=== PATIENT | male | born 1985 | race Caucasian/White ===

== ENCOUNTER 2017-06-29 01:46 | Emergency (ER) | payer MEDICAID, SELFPAY ==
[2017-06-29 01:48] VITALS: BP 144/72; PULSE 92; RESP 24; TEMP 36.7; O2SAT 97; BMI 42.8
--- NOTE | 2017-06-29 01:55 | EKG12_ITS ---
Test Reason : CP Blood Pressure : / mmHG Vent. Rate : 081 BPM Atrial Rate : 081 BPM P-R Int : 134 ms QRS Dur : 104 ms QT Int : 378 ms P-R-T Axes : 022 055 057 degrees QTc Int : 439 ms Normal sinus rhythm Normal ECG Confirmed by RAMON AVERY, ARTHUR ([id number]), staff editor CECIL VILA ([id number] on 07/02/2017 2:31:08 PM Referred By: JULIET Confirmed By:ARTHUR NAVARRO MD
--- NOTE | 2017-06-29 01:57 | ED.DCSUM_ITS ---
- ER Visit Summary Date of Service: 06/29/17 Chief Complaint: [] Cough with chest soreness History of Present Illness: The patient is a 32 M with a history of asthma has been coughing for last 3 days. He has had some mucus brought up. Current severity is mild. He is using his inhaler. He has been wheezing. Comes in for further evaluation. Physical Examination: Vital signs reviewed General: Well-nourished well-developed Head: Normocephalic atraumatic Eyes: Pupils equal round and reactive to light extraocular movements intact ENT: TMs clear no hemotympanum no trauma Neck: Nontender full range of motion Cardiovascular: Regular rate rhythm no murmurs normal S1-S2 Respiratory: Diffuse wheezes throughout all lung rivera expiratory. Chest nontender Abdomen: Soft nontender nondistended normal bowel sounds no masses Back: Nontender no CVA tenderness Extremities: Nontender active range of motion ?4 extremities no trauma Skin: Normal color no trauma Neuro alert oriented cranial nerves II through XII intact normal strength sensation reflexes Test Results: [] Emergency Department Course and Treatment: [] EKG obtained by staff shows normal sinus rhythm at 81. Patient given DuoNeb breathing treatment and albuterol breathing treatments with good resolution of wheezing. The patient has an asthmatic bronchitis versus asthma exacerbation. He will be treated with prednisone. He is a smoker and I will write him for a short course of Z- Domingo. Treatment Plan: [] Disposition: [] Impression: [] Acute asthma exacerbation versus asthmatic bronchitis This note was generated with [employer] dictation software. It may contain incorrect words, spelling, and punctuation that were not noted in review of the chart prior to signing ED Disposition - Plan for ED Patient: Chief Complaint: Chest Pain Referrals: Care Physician,No Primary [Primary Care Provider] -
[2017-06-29 02:03] VITALS: O2SAT 94
[2017-06-29] MEDS: Ipratropium/Albuterol Sulfate 3 ML AMPUL.NEB INHALATION (02:08)
[2017-06-29 02:09] VITALS: PULSE 73; RESP 23
[2017-06-29] MEDS: Albuterol 2.5 MG/3 ML VIAL.NEB. INHALATION ×2 (02:12→02:17)
[2017-06-29 02:35] VITALS: BP 126/63; PULSE 84; RESP 21; O2SAT 95
== END 2017-06-29 02:36 | disposition home or self-care (01) ==
LOC: ED 02:32
PROVIDERS: Emergency Provider Emergency Medicine
DX: J45.909 Unspecified asthma, uncomplicated (principal); F17.200 Nicotine dependence, unspecified, uncomplicated
CPT/HCPCS: 93005; 94640; 99284

== ENCOUNTER 2019-02-22 10:41 | Emergency (ER) | payer MEDICAID, SELFPAY ==
[2019-02-22 10:42] VITALS: BP 123/75; PULSE 78; RESP 18; TEMP 36.6; O2SAT 98; BMI 35.9
--- NOTE | 2019-02-22 11:02 | ED.VIS.GEN ---
History of Present Illness Chief Complaint: Lower Extremity Injury Informant: Patient Onset: Days Timing: Continuous Quality: Cracked skin and pain Location: Plantar surface of feet Current Severity: Moderate Maximum Severity: Moderate Worsened by: Perspiration Relieved by: Nothing Associated Symptoms: No symptoms of hyperglycemia Narrative: Patient is a 33-year-old male presents with painful cracks in his skin and rash between the right fourth and fifth toe. There is family history of diabetes. He denies polyuria, polydipsia or polyphagia. He denies nocturia. He denies blurred vision or any change in his vision. He states he put subsiding. He reports sweating a lot. Prior similar symptoms: No Recent Illness/Hospitalization: No - Past Medical History (1) Lower GI bleeding Status: Acute (2) Overdose by amphetamine Status: Acute (3) Cannabis abuse Status: Chronic (4) Nicotine dependence Status: Chronic Past Medical History - Allergies and Home Meds Allergies/Adverse Reactions: Allergies Penicillins Allergy (Verified 02/22/19 10:44) Unknown venom-honey bee [bee venom (honey bee)] Allergy (Verified 02/22/19 10:44) Swelling Primary Care Physician: Js Roblero Chi, MD [COURTESY STAFF PHYSICIAN] - Care Physician,No Primary [Primary Care Provider] - Prior records reviewed: Yes Surgical History: - - unknown....pt not answerin any questions and is somnulent Lives: Alone Smoking Status: Current every day smoker Alcohol: Rare Drugs: Marijuana - Family History Maternal Family History: Reports: - - can not obtain....pt is not talking or answering questions Review of Systems General: Denies: Chills, Fever, Malaise, Sweats Eyes: Denies: Visual changes - bilaterally, Blurred Vision - bilaterally, Diplopia ENT: Denies: Bilateral ear pain, Rhinorrhea, Sore throat Cardiovascular: Denies: Chest pain, Palpitations Respiratory: Denies: Dyspnea, Cough, Dyspnea on exertion Musculoskeletal: Reports: Extremity Pain. Denies: Myalgias, Arthralgias, Neck pain, Back pain, Swelling Skin: Reports: Rash, Wounds. Denies: Abscess, Abrasions Allergy: Denies: Uticaria, Swelling of the mouth Physical Exam Vital Signs/Narrative: Vital Signs Temp Pulse Resp BP Pulse Ox 02/22/19 10:42 97.9 F 78 18 123/75 H 98 Inital Vital Signs reviewed: Yes General: Well nourished, Well developed, Obese, Unkempt, No Acute Distress Head: Normocephalic, Atraumatic Eyes: Perrl, EOMI. Negative for: Pale conjunctiva, Scleral icterus, - Cardiovascular: Regular rate, Regular rhythm Respiratory: No distress Extremities: No edema. Negative for: Nontender Skin: Normal color, Rash - She has evidence of dyshidrotic eczema of his feet as well as tinea pedis.. Negative for: No rash Neurological: Alert, Oriented x3, Cranial nerves II-XII grossly intact, Normal Strength, Normal Sensation, Normal DTR Psychological: Normal affect Diagnostic/Tx/Re-eval Sugar is elevated 152. This is abnormal. He was to follow-up with his primary care physician for formal testing. - Medical Decision Making There is a family history of diabetes a BTT was obtained. If PTT is normal will discharge with home-going instructions for dyshidrotic eczema and tinea pedis. ED Disposition - Plan for ED Patient: Diagnosis: Tinea pedis of right foot, Dyshidrotic eczema, Hyperglycemia, unspecified Instructions: Atopic Dermatitis (Eczema), CLOTRIMAZOLE, Topical, Athlete'S Foot, HYPERGLYCEMIA, NEW ONSET (Diabetes Suspected) Prescriptions: Clotrimazole [Clotrimazole AF] 30 gm TP TID #1 cream..g. Prescription Printed Referrals: Care Physician,No Primary [Primary Care Provider] - Js Roblero Chi, MD [COURTESY STAFF PHYSICIAN] - 5-7 Days Additional Instructions: Apply Eucerin cream 3 times a day. Recommend application prior to going to bed as well.
[2019-02-22 11:50] LABS: Bedside Glucose 152 mg/dL (70-110)
== END 2019-02-22 12:35 | disposition home or self-care (01) ==
LOC: ED 11:14
PROVIDERS: Emergency Provider Emergency Medicine
DX: L30.1 Dyshidrosis [pompholyx] (principal); B35.3 Tinea pedis; R73.9 Hyperglycemia, unspecified; F17.200 Nicotine dependence, unspecified, uncomplicated; Z88.0 Allergy status to penicillin; Z83.3 Family history of diabetes mellitus
CPT/HCPCS: 82962; 99282

== ENCOUNTER 2019-08-16 13:28 | Emergency (ER) | payer MEDICAID, SELFPAY ==
[2019-08-16 13:29] VITALS: BP 134/85; PULSE 88; RESP 16; TEMP 36.7; O2SAT 98; BMI 35.9
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
[2019-08-16 15:11] VITALS: RESP 18
[2019-08-16 15:29] VITALS: BP 133/77; PULSE 104; RESP 16; O2SAT 97
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
--- NOTE | 2019-08-16 15:32 | ED.DEP ---
ED Disposition - Plan for ED Patient: Instructions: ED Concussion
[2019-08-16] MEDS: Acetaminophen 500 MG Tablet 1000 MG PO (15:49)
--- NOTE | 2019-08-16 17:14 | ED.RN ---
pt returned shortly after dc. nurse at long term concerned fro concussion,
--- NOTE | 2019-08-16 17:30 | ED.RN ---
patient refusing to have labs drawn or give urine sample. made aware
--- NOTE | 2019-08-16 18:00 | NURSING ---
patient refusing to sign AMA papersrayna on phone with their motion picture equipment supervisor, and instructed to have labs and urine drawn if he refuses to sign AMA papers
--- NOTE | 2019-08-16 18:10 | NURSING ---
Per Keren ARAYA nursing flame cutting supervisor, we need a warrant to draw blood and get urine if patient is refusing, winter soria made aware
--- NOTE | 2019-08-16 18:15 | NURSING ---
Patient agreeable to sign AMA papers, still refusing labs to be drawn or give urine sample. Patient has been educated by this RN, Anand Hameed RN and Dr. Bishop on need to further evaluate him by utiliing lab work. Patient given AMA paper, states he is able to read and understand it. This RN read part of paper to timjose angel at his request. Told he can return at any time for care, concussion education reprintedand AMA paper signed. Patient discharged in [facility] Deputies' custody
== END 2019-08-16 18:31 | disposition home or self-care (01) ==
LOC: ED 15:42
PROVIDERS: Emergency Provider Emergency Medicine
DX: S06.0X1A Concussion with loss of consciousness of 30 minutes or less, initial encounter (principal); V89.2XXA Person injured in unspecified motor-vehicle accident, traffic, initial encounter; Y93.89 Activity, other specified; Y92.9 Unspecified place or not applicable; R07.89 Other chest pain; R40.0 Somnolence; Z72.0 Tobacco use; Z53.29 Procedure and treatment not carried out because of patient's decision for other reasons
CPT/HCPCS: 70450; 71101; 99283

== ENCOUNTER 2021-03-02 17:20 | Emergency (ER) | payer MEDICAID, SELFPAY ==
[2021-03-02 17:20] VITALS: BP 124/112; PULSE 132; RESP 18; TEMP 36.1; O2SAT 95; BMI 45.3
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
[2021-03-02] MEDS: Morphine 4 MG/ML Syringe IV (17:57)
[2021-03-02] MEDS: Ketorolac 60 MG/2 ML Vial IM (17:57)
[2021-03-02] MEDS: Orphenadrine 60 MG/2 ML Ampul IM (17:58)
[2021-03-02 18:50] VITALS: BP 142/87; PULSE 87; RESP 16; O2SAT 99
== END 2021-03-02 19:16 | disposition home or self-care (01) ==
PROVIDERS: Emergency Provider Emergency Medicine
DX: M54.50 Low back pain, unspecified (principal); E66.9 Obesity, unspecified; Z68.42 Body mass index [BMI] 45.0-49.9, adult; Z79.899 Other long term (current) drug therapy; Z87.891 Personal history of nicotine dependence
CPT/HCPCS: 96372; 96374; 99282

== ENCOUNTER 2021-06-22 10:40 | Emergency (ER) | payer MEDICAID, SELFPAY ==
[2021-06-22 10:41] VITALS: BP 135/101; PULSE 56; RESP 17; TEMP 35.7; O2SAT 96; BMI 46.2
[2021-06-22 11:17] VITALS: BP 145/78; PULSE 72; RESP 16; O2SAT 98
[2021-06-22] MEDS: Ketorolac 15 MG/ML Vial IM (11:20)
[2021-06-22] MEDS: Morphine 4 MG/ML Syringe IM (11:21)
[2021-06-22] MEDS: Orphenadrine 60 MG/2 ML Ampul IM (11:21)
--- NOTE | 2021-06-22 11:54 | CT_ITS ---
STUDY: CT ABDOMEN AND PELVIS WITHOUT CONTRAST REASON FOR EXAM: Male, 36 years old. 2 day history of flank pain. RADIATION DOSAGE (If Supplied By Facility): CTDIvol = ( 33.36 ) mGy, DLP = ( 1966.88 ) mGycm TECHNIQUE: Transaxial images were obtained from the dome of the diaphragm to the symphysis pubis without oral contrast, and without intravenous contrast. Sagittal and coronal images were reconstructed. Individualized dose optimization techniques were used for this CT. COMPARISON: Comparison is made with prior study 09/26/2019. FINDINGS: The visualized lung bases are unremarkable. The visualized portions of the heart are within normal limits. Normal liver. Normal gallbladder and extrahepatic biliary system. Normal spleen. Normal pancreas. Normal bilateral adrenal glands. Punctate calculus is seen in the lower pole calyx of the right kidney. Normal left kidney. Incidental note is made of a left retroaortic renal vein. Normal visualized stomach. Normal small intestine. There are scattered colonic diverticula consistent with diverticulosis. The appendix is visualized and appears normal. Normal abdominal aorta. Normal inferior vena cava. Normal retroperitoneum. Normal urinary bladder. There is a small umbilical hernia containing fat. There are mild degenerative changes of the visualized lumbar spine. CT/Abdomen/Pelvis without Cont IMPRESSION: Punctate calculus in the lower pole calyx of the right kidney. No obstructive uropathy is seen. Electronically Signed: Yony Lawrence MD at 12:49 EST ,
--- NOTE | 2021-06-22 11:54 | ED.VIS.BACK ---
HPI History of Present Illness Chief Complaint: Back Narrative Narrative: 36-year-old male presenting with left lumbar paraspinal muscular pain. He states that this is been present for 3 days. He states he shoveled snow prior to the pain starting on the first day it hurt but it was manageable. Yesterday he reports improvement of his pain. Today when he woke up he was feeling as if he had a muscle spasm in the left lower back. He states this radiates into the left gluteal region and left posterior thigh. Patient denies any direct trauma. He denies loss of bladder or bowel control. No saddle paresthesia. Patient does report a history of kidney stone in the past. He denies dysuria hematuria. He denies constipation or diarrhea. He denies fever or chills. [facility] Medical History Bipolar 1 disorder History of drug overdose History of suicidal ideation PTSD (post-traumatic stress disorder) Home Medications aripiprazole 15 mg PO DAILY 09/26/19 [History Last Taken Unknown] divalproex 250 mg PO BIDCM 09/26/19 [History Last Taken Unknown] ibuprofen 800 mg PO TID PRN PRN #20 tab 09/26/19 [Rx Last Taken Unknown] sertraline 25 mg PO DAILY 09/26/19 [History Last Taken Unknown] tamsulosin 0.4 mg PO DAILY #7 cap 09/26/19 [Rx Last Taken Unknown] cyclobenzaprine 10 mg PO BID PRN #10 tab 03/02/21 [Rx Last Taken Unknown] oxycodone-acetaminophen [Percocet] 1 tab PO Q6H PRN 3 Days #10 tab 03/02/21 [Rx Last Taken Unknown] prednisone 60 mg PO DAILY #15 tab 03/02/21 [Rx Last Taken Unknown] prednisone 50 mg PO DAILY #4 tab 06/22/21 [Rx Last Taken Unknown] tizanidine [Zanaflex] 4 mg PO Q8H PRN #20 cap 06/22/21 [Rx Last Taken Unknown] Allergy/AdvReac Type Severity Reaction Status Date / Time Penicillins Allergy Unknown Verified 06/22/21 10:41 venom-honey bee Allergy Swelling Verified 06/22/21 10:41 [bee venom (honey bee)] Social History Smoking Status: Former smoker ROS ROS ED Constitutional Constitutional ED: Denies chills or fever(s) Eyes Eyes: Denies blurry vision or diplopia ENT ENT ED: Denies rhinorrhea or sore throat Cardiovascular Cardiovascular: Denies chest pain or palpitations Respiratory/Chest Respiratory/Chest: Denies dyspnea or sputum Gastrointestinal Gastrointestinal: Denies abdominal pain or nausea Genitourinary Genitourinary ED: Denies dysuria or hematuria Musculoskeletal Musculoskeletal: Reports back pain Integumentary Denies Abrasions or rash Psychiatric Psychiatric: Denies anxiety or depression EXAM Physical Exam Const Vital Signs: 06/22/21 10:41 06/22/21 11:17 06/22/21 13:16 Temperature 96.2 F L Temperature Source Temporal Pulse Rate 56 L 72 88 Respiratory Rate 17 16 18 Blood Pressure 135/101 H 145/78 H 134/82 H Blood Pressure Mean 112 100 99 Pulse Ox 96 98 97 Oxygen Delivery Method Room Air Room Air Room Air Positive well nourished and obese Constitutional Narrative: Appears to be in pain laying on his abdomen Nutritional Appearance: obese HEENT Negative for trauma Eyes Negative for PERRL or EOMs intact bilaterally Neck No no lymphadenopathy and No supple Resp No normal respiratory effort and No clear to auscultation bilaterally Cardio Negative for regular rate or regular rhythm GI normal to inspection, nondistended, normoactive bowel sounds Back/Spine Back/Spine Narrative: Tenderness to palpation left lumbar paraspinal musculature extending into the left gluteal region. No midline spinal deformity or step-off of the lumbar spine. No CVA tenderness. Extremity normal to inspection Extremity Narrative: Tenderness palpation of the left gluteal region and left posterior thigh. No rash, ecchymosis, cellulitic change Neuro oriented x3 Sensorium / Orientation: alert Psych mental status grossly normal Skin no rashes or lesions noted MDM MDM MDM Narrative Medical decision making narrative: 36-year-old male presenting with left lower back pain. He is initially given Norflex, Toradol, and and morphine IM. He still complained of pain and he was given a Lidoderm patch and an IV was established he was given IV Dilaudid. This did help his pain considerably. Since he has history of kidney stone as well I did obtain blood work and his CBC and BMP are unremarkable. Urinalysis is negative for infection and blood. CT of the abdomen pelvis without contrast obtained and there is no obstructing calculi. There is a punctate calculus in the lower pole of the right kidney which is not where his pain is. Patient counseled on all findings. I feel he likely has a lumbar strain with radiculopathy. Patient started on prednisone which had worked for him in the past and he is given a prescription for muscle relaxers. He is given return precautions. Impression: 1. Lumbar strain 2. Lumbar radiculopathy Lab Data Attestation: I reviewed the patient's lab results. Labs: Laboratory Results - last 24 hr 06/22/21 06/22/21 06/22/21 12:00 12:00 12:00 WBC 10.4 RBC 5.07 Hgb 15.3 Hct 45.0 MCV 88.8 MCH 30.2 MCHC 34.0 RDW Std Deviation 44.1 H RDW Coeff of Radha 13.6 Plt Count 259 MPV 11.2 Immature Gran % (Auto) 0.300 Neut % (Auto) 67.6 Lymph % (Auto) 22.0 [place] % (Auto) 8.3 Eos % (Auto) 1.5 Baso % (Auto) 0.3 Absolute Neuts (auto) 7.0 Absolute Lymphs (auto) 2.29 Nucleated RBC % 0 Sodium 138 Potassium 4.5 Chloride 109 H Carbon Dioxide 26.0 Anion Gap 3 L BUN 16 Creatinine 0.92 Estim Creat Clear Calc 113.51 Est GFR (MDRD) Af Amer 119 Est GFR (MDRD) Non-Af 99 BUN/Creatinine Ratio 17.4 Glucose 100 Calcium 8.6 Urine Color Urine Clarity Urine pH Ur Specific [place] Urine Protein Urine Glucose (UA) Urine Ketones Urine Occult Blood Urine Nitrite Urine Bilirubin Urine Urobilinogen Ur Leukocyte Esterase Urine RBC Urine WBC Ur Squamous Epith Cells Urine Bacteria Urine Mucus Valproic Acid < 3 L 06/22/21 12:02 WBC RBC Hgb Hct MCV MCH MCHC RDW Std Deviation RDW Coeff of Radha Plt Count MPV Immature Gran % (Auto) Neut % (Auto) Lymph % (Auto) [place] % (Auto) Eos % (Auto) Baso % (Auto) Absolute Neuts (auto) Absolute Lymphs (auto) Nucleated RBC % Sodium Potassium Chloride Carbon Dioxide Anion Gap BUN Creatinine Estim Creat Clear Calc Est GFR (MDRD) Af Amer Est GFR (MDRD) Non-Af BUN/Creatinine Ratio Glucose Calcium Urine Color Yellow Urine Clarity Clear Urine pH 6.5 Ur Specific [place] 1.020 Urine Protein Negative Urine Glucose (UA) Normal Urine Ketones Negative Urine Occult Blood Negative Urine Nitrite Negative Urine Bilirubin Negative Urine Urobilinogen Normal Ur Leukocyte Esterase Negative Urine RBC 0 SEEN Urine WBC 0 SEEN Ur Squamous Epith Cells 0 SEEN Urine Bacteria 0 SEEN Urine Mucus 0 SEEN Valproic Acid Radiography Diagnostic Testing: Clinical Impression(s) from Imaging Studies Abdomen/Pelvis CT 06/22/21 11:54 IMPRESSION: Punctate calculus in the lower pole calyx of the right kidney. No obstructive uropathy is seen. Electronically Signed: Yony Lawrence MD at 12:49 EST , Discharge Plan Triage Chief Complaint: Back ED Provider: Pk Orozco Dx/Rx/DC Orders Instructions: ED Back Spasm, No Trauma Prescriptions: New prednisone 50 mg tablet 50 mg PO DAILY Qty: 4 RF: 0 tizanidine [Zanaflex] 4 mg capsule 4 mg PO Q8H PRN (Reason: muscle spasticity) Qty: 20 RF: 0 No Action divalproex 250 MG tablet 250 mg PO BIDCM RF: 0 sertraline 25 MG tablet 25 mg PO DAILY RF: 0 aripiprazole 15 MG tablet 15 mg PO DAILY RF: 0 ibuprofen 800 MG tablet 800 mg PO TID PRN PRN (Reason: Pain Score 1-10/10) Qty: 20 RF: 0 tamsulosin 0.4 MG capsule 0.4 mg PO DAILY Qty: 7 RF: 0 cyclobenzaprine 10 mg tablet 10 mg PO BID PRN (Reason: muscle spasm) Qty: 10 RF: 0 prednisone 20 MG tablet 60 mg PO DAILY Qty: 15 RF: 0 oxycodone-acetaminophen [Percocet] 5-325 mg tablet 1 tab PO Q6H PRN (Reason: pain) 3 Days Qty: 10 RF: 0 Primary Care Provider: Care Physician,No Primary Referrals: Harvinder Elizabeth MD [STAFF PHYSICIAN] - As soon as possible Care Physician,No Primary [Primary Care Provider] - Disposition Disposition: Home, Self Care Discharge Date/Time: 06/22/21 14:24
[2021-06-22] MEDS: Lidocaine 5% Patch 1 PATCH TOPICAL (12:15)
[2021-06-22] MEDS: HYDROmorphone 0.5 MG/0.5 ML SYRINGE IV (12:15)
[2021-06-22] MEDS: predniSONE 20 MG Tablet 60 MG PO (12:15)
[2021-06-22 12:18] LABS: Bacteria 0 SEEN /hpf (None Seen); Mucous, Urine 0 SEEN /hpf (<or=2+); Red Blood Cells-Urine 0 SEEN /hpf (0-5); Squamous Epithelial Cells - UA 0 SEEN /hpf (0-5); White Blood Cells 0 SEEN /hpf (0-5)
[2021-06-22 12:19] LABS: Absolute Lymphocyte Count 2.29 X10^3/uL (0.83-4.51); Basophil# 0.03 X10^3/uL; Basophil% 0.3 % (0-1); Eosinophil# 0.16 X10^3/uL; Eosinophils% 1.5 % (0-5); Hemoglobin 15.3 g/dL (13.0-16.5); Lymphocyte # 2.29 X10^3/ul (0.83-4.51); Mean Corpuscular Hgb 30.2 pg (27.0-32.0); Mean Corpuscular Volume 88.8 fL (80-94); Mean Platelet Vol. 11.2 fl (6.2-12.0); Monocyte# 0.86 X10^3/uL; Monocyte% 8.3 % (0-10); NRBC Flagged by Analyzer 0 % (0-5); Neutrophil # 7.03 X10^3/uL (2.7-7.7); Neutrophil % 67.6 % (47-70); Platelet Count 259 K/mm3 (150-450); RBC Distribution Width CV 13.6 % (11.6-14.6); RBC Distribution Width SD 44.1 fl (35.1-43.9); Red Blood Count 5.07 M/mm3 (4.6-6.2); White Blood Count 10.4 K/mm3 (4.4-11.0)
[2021-06-22 12:23] LABS: Color, Urine Yellow (Yellow); Glucose, Dipstick Normal (Normal); Ketone-Dipstick Negative (Negative); Leukocyte Esterase-Dipstick Negative /ul (Negative); Nitrite-Dipstick Negative (Negative); Occult Blood-Urine Negative /ul (Negative); Protein-Dipstick Negative (Negative); Urine Bilirubin Dipstick Negative (Negative); Urine Clarity Clear (Clear); Urine Urobilinogen Normal (Normal); Urine pH 6.5 (5.0 - 8.0)
[2021-06-22 12:30] LABS: Anion Gap 3 (5-15); BUN 16 mg/dL (7-18); BUN/Creat Ratio 17.4 RATIO (10-20); Calcium,Total 8.6 mg/dL (8.5-10.1); Chloride 109 mmol/L (98-107); Creatinine, Serum 0.92 mg/dL (0.70-1.30); EST Glomerular Filtration Rate 99 mL/min (>60); Est Glom Filt Rate - Afr Amer 119 mL/min (>60); Estimated Creatinine Clearance 113.51 ml/min; Glucose 100 mg/dL (74-106); Potassium 4.5 mmol/L (3.5-5.1); Sodium Level 138 mmol/L (136-145)
[2021-06-22 12:55] LABS: Valproic Acid (Depakene) Level < 3 ug/mL (50-100)
[2021-06-22 13:16] VITALS: BP 134/82; PULSE 88; RESP 18; O2SAT 97
[2021-06-22 14:23] VITALS: BP 120/76; PULSE 61; RESP 15; O2SAT 98
== END 2021-06-22 14:24 | disposition home or self-care (01) ==
PROVIDERS: Emergency Provider Student in an Organized Health Care Education/Training Program; Visit Provider Student in an Organized Health Care Education/Training Program
DX: S39.012A Strain of muscle, fascia and tendon of lower back, initial encounter (principal); F31.9 Bipolar disorder, unspecified; Z68.42 Body mass index [BMI] 45.0-49.9, adult; X50.0XXA Overexertion from strenuous movement or load, initial encounter; Y93.H1 Activity, digging, shoveling and raking; M54.16 Radiculopathy, lumbar region; E66.9 Obesity, unspecified; Z79.899 Other long term (current) drug therapy; Z87.442 Personal history of urinary calculi; Z87.891 Personal history of nicotine dependence
CPT/HCPCS: 74176; 80048; 80164; 81001; 85025; 96372; 96374; 99283; A4216

== ENCOUNTER 2023-12-30 19:15 | Emergency (ER) | payer MEDICAID, SELFPAY ==
[2023-12-30 19:16] VITALS: BP 145/101; PULSE 102; RESP 18; TEMP 36.3; O2SAT 98
[2023-12-30 19:17] VITALS: BMI 56.7
--- NOTE | 2023-12-30 20:49 | EDS_ITS ---
HPI History of Present Illness Chief Complaint: Edema Informant: patient Onset/Context/Timing Onset: Days (8) Context: Gradual Onset Timing: Continuous Quality: Tightness Location: Bilateral lower extremities Worsened by: Standing, ambulation, and dependent positions Relieved by: Rest and elevation Narrative Narrative: Patient presents with lower extremity edema that has been getting worse over the past 8 days. Patient states his legs feel tight. Patient states that it is over both lower extremities to his knees. Patient states the swelling gets worse throughout the day. Patient states that it gets better when he sleeps and keeps his legs elevated. Patient denies any chest pain or shortness of breath. Patient denies any nausea or vomiting. Patient states he does have a history of chronic back pain. Patient denies any fevers or chills. Prior similar symptoms: No [facility] Medical History (Updated 12/30/23 @ 23:[address] Marques Perez DO) Nicotine dependence Asthma Cannabis abuse Bipolar 1 disorder History of drug overdose History of suicidal ideation PTSD (post-traumatic stress disorder) Home Medications ?Medication ?Instructions ?Recorded ?Last Taken ?Type hydrochlorothiazide 25 mg tablet 25 mg PO DAILY #10 tabs 12/30/23 Unknown Rx Allergy/AdvReac Type Severity Reaction Status Date / Time Penicillins Allergy Unknown Verified 06/22/21 10:41 Surgical History no surgical history no surgical history Social History Smoking Status: Current every day smoker tobacco type: cigarettes ROS ROS ED Constitutional Constitutional ED: Denies chills or fever(s) Eyes Eyes: Denies blurry vision or change in vision ENT ENT ED: Denies rhinorrhea or sore throat Cardiovascular Cardiovascular: Denies chest pain or palpitations Respiratory/Chest Respiratory/Chest: Denies cough or dyspnea Gastrointestinal Gastrointestinal: Denies nausea or vomiting Genitourinary Genitourinary ED: Denies dysuria or hematuria Musculoskeletal Musculoskeletal: Reports back pain; Denies neck pain Integumentary Denies abscess or rash Neurologic Neurologic: Denies headache(s) or weakness Allergic/Immunologic Allergic/Immunologic ED: Denies mouth swelling or urticaria EXAM Physical Exam Const Vital Signs: 12/30/23 19:16 12/30/23 21:16 12/30/23 21:30 Temperature 97.4 F L Temperature Source Temporal Pulse Rate 102 H 91 Respiratory Rate 18 18 Respiratory Effort Normal Respiratory Pattern Normal Blood Pressure 145/101 H 120/86 H Blood Pressure Mean 115 97 Pulse Ox 98 96 Oxygen Delivery Method Room Air Room Air Positive well nourished, well developed and obese General Appearance ED: well developed and NAD Nutritional Appearance: obese HEENT Reports moist mucous membranes Neck supple and no JVD Resp normal respiratory effort and clear to auscultation bilaterally Cardio regular rate and regular rhythm GI non-tender and non-distended Palpation: soft Extremity General Extremety ED: Yes edema and tenderness General Extremity: edema Neuro oriented x3, CN's II-XII intact bilaterally and no sensory deficits noted Sensorium / Orientation: alert Motor Exam: strength 5/5 throughout MDM MDM MDM Narrative Medical decision making narrative: Differential diagnosis includes congestive heart failure, kidney disease, electrolyte abnormality, and peripheral edema. EKG will be obtained to assess for cardiac dysrhythmia and cardiac ischemia. Chest x-ray will be obtained to assess for congestive heart failure, pneumonia, and pneumothorax. CBC will be obtained to assess for leukocytosis and anemia. Basic metabolic profile will be obtained to assess for electrolyte abnormality and renal function. Urinalysis will be obtained to assess for urinary tract infection and hematuria. BNP will be obtained to assess for congestive heart failure. Lab Data Attestation: I reviewed the patient's lab results. Lab results narrative: CBC was reviewed and was within normal limits. Basic metabolic profile was rev iewed and was within normal limits. High-sensitivity troponin was reviewed and was normal at 5. BNP was reviewed and was normal at 2.8. Urinalysis was reviewed. There is no evidence of urinary tract infection. Occult blood was 50 with 5-10 red blood cells. Labs: Laboratory Results - last 24 hr 12/30/23 12/30/23 21:05 21:15 WBC 6.1 RBC 4.98 Hgb 14.4 Hct 45.4 MCV 91.2 MCH 28.9 MCHC 31.7 L RDW Std Deviation 47.2 H RDW Coeff of Radha 14.0 Plt Count 251 MPV 11.2 Immature Gran % (Auto) 0.300 Neut % (Auto) 53.3 Lymph % (Auto) 35.3 [place] % (Auto) 7.5 Eos % (Auto) 2.9 Baso % (Auto) 0.7 Absolute Neuts (auto) 3.3 Absolute Lymphs (auto) 2.16 Nucleated RBC % 0 Sodium 141 Potassium 3.9 Chloride 110 H Carbon Dioxide 25.0 Anion Gap 6 BUN 10 Creatinine 0.88 Estim Creat Clear Calc 184.15 Est GFR (MDRD) Af Amer 124 Est GFR (MDRD) Non-Af 102 BUN/Creatinine Ratio 11.4 Glucose 92 Calcium 9.0 Troponin I High Sens 5 B-Natriuretic Peptide 2.8 Urine Color Yellow Urine Clarity Sl. Cloudy Urine pH 5.0 Ur Specific [place] 1.025 Urine Protein 15 H Urine Glucose (UA) Normal Urine Ketones Negative Urine Occult Blood 50 H Urine Nitrite Negative Urine Bilirubin Negative Urine Urobilinogen 1 H Ur Leukocyte Esterase Negative Urine RBC 5-10 SEEN Urine WBC 0-5 SEEN Ur Squamous Epith Cells 0-5 SEEN Urine Bacteria 1+ Hyaline Casts 0-5 SEEN Urine Mucus 3+ Radiography Chest X-Ray - ED: 2 View, Read by ED Physician, Read by Radiologist and Lungs (There is slight increase in interstitial markings) Diagnostic Testing: Clinical Impression(s) from Imaging Studies Chest X-Ray 12/30/23 21:18 IMPRESSION: Slight increase in interstitial markings may represent edema and/or infection. Electronically Signed: Juan Knutson MD at 22:57 EDT , PA and lateral chest x-ray was obtained. There are 2 views. On my independent interpretation, lung rivera show slight increase in interstitial markings. There is normal cardiac silhouette. Bony thorax is normal. There is no acute process noted. Radiologist also interpreted the x-ray and agrees. EKG Initial EKG: Attestation: I personally reviewed and interpreted this EKG as follows: Interpretation: Sinus Rhythm (93) and No Acute Injury Pattern Comments: EKG was obtained. On my independent interpretation, it showed a normal sinus rhythm with a rate of 93. MS interval, QRS interval, and QTc intervals were all normal. [place] was normal. There are no acute ST or T wave changes. Prior EKG tracings: available for review Prior: Unchanged (08/27/2019) Treatment and Re-Evaluation :: Smoking cessation was discussed. Patient was advised of his findings. Patient was given a prescription for a short course of hydrochlorothiazide. Patient was instructed to follow-up with a primary care physician in 5 to 7 days. Patient understood and was agreeable with the plan. All questions were answered. Discharge Plan Triage Chief Complaint: Edema ED Provider: Marques Perez Dx/Rx/DC Orders Clinical Impression: Peripheral edema, Nicotine dependence Instructions: ED Peripheral Edema, Bilateral Prescriptions: New hydrochlorothiazide 25 mg tablet 25 mg PO DAILY Qty: 10 0RF Primary Care Provider: Care Physician,No Primary Referrals: Altagracia Sanchez [Non-Staff] - 5-7 Days Care Physician,No Primary [Primary Care Provider] - Print Language: Portuguese Disposition Disposition: Home, Self Care
--- NOTE | 2023-12-30 20:55 | EKG12_ITS ---
Test Reason : DYSRHYTHMIA Blood Pressure : / mmHG Vent. Rate : 093 BPM Atrial Rate : 093 BPM P-R Int : 158 ms QRS Dur : 116 ms QT Int : 372 ms P-R-T Axes : 008 041 039 degrees QTc Int : 462 ms Normal sinus rhythm Normal ECG Confirmed by CLEVE AVERY, EDDIE ([id number]), clinical cytogeneticist ALFA WHITAKER ([id number]) on 01/02/2024 6:39:27 AM Referred By: Confirmed By:JERMAINE POON MD
[2023-12-30 21:16] VITALS: BP 120/86; PULSE 91; RESP 18; O2SAT 96
[2023-12-30 21:16] LABS: Absolute Lymphocyte Count 2.16 X10^3/uL (0.83-4.51); Absolute Neutrophil Count 3.3 X10^3/uL (2.0-7.7); Basophil# 0.04 X10^3/uL; Basophil% 0.7 % (0-1); Eosinophil# 0.18 X10^3/uL; Eosinophils% 2.9 % (0-5); Hematocrit 45.4 % (40-54); Hemoglobin 14.4 g/dL (13.0-16.5); Lymphocyte # 2.16 X10^3/ul (0.83-4.51); Lymphocyte % 35.3 % (19-41); Mean Corp Hgb Conc 31.7 g/dL (32-36); Mean Corpuscular Hgb 28.9 pg (27.0-32.0); Mean Corpuscular Volume 91.2 fL (80-94); Mean Platelet Vol. 11.2 fl (6.2-12.0); Monocyte# 0.46 X10^3/uL; Monocyte% 7.5 % (0-10); NRBC Flagged by Analyzer 0 % (0-5); Neutrophil # 3.26 X10^3/uL (2.7-7.7); Neutrophil % 53.3 % (47-70); Platelet Count 251 K/mm3 (150-450); RBC Distribution Width SD 47.2 fl (35.1-43.9); Red Blood Count 4.98 M/mm3 (4.6-6.2); White Blood Count 6.1 K/mm3 (4.4-11.0)
--- NOTE | 2023-12-30 21:18 | RAD_ITS ---
INDICATION: Edema EXAMINATION/TECHNIQUE: X-RAY - XR Chest 2 Views COMPARISON: 08/16/2019. FINDINGS: Slight increase in interstitial markings, in the lung bases. The cardiomediastinal silhouette is unremarkable. No pleural effusion or pneumothorax. No acute osseous abnormalities. RAD/Chest PA and Lateral IMPRESSION: Slight increase in interstitial markings may represent edema and/or infection. Electronically Signed: Juan Knutson MD at 22:57 EDT ,
[2023-12-30 21:29] LABS: Color, Urine Yellow (Yellow); Glucose, Dipstick Normal (Normal); Ketone-Dipstick Negative (Negative); Leukocyte Esterase-Dipstick Negative /ul (Negative); Nitrite-Dipstick Negative (Negative); Occult Blood-Urine 50 /ul (Negative); Protein-Dipstick 15 mg/dl (Negative); Specific Gravity, Urine 1.025 (1.002-1.030); Urine Bilirubin Dipstick Negative (Negative); Urine Clarity Sl. Cloudy (Clear); Urine Urobilinogen 1 mg/dl (Normal)
[2023-12-30 21:36] LABS: BNP,B-Type NATRIURETIC PEPTIDE 2.8 pg/mL (0-100)
[2023-12-30 21:38] LABS: Hyaline Cast 0-5 SEEN /lpf (0-5); Mucous, Urine 3+ /hpf (<or=2+); Squamous Epithelial Cells - UA 0-5 SEEN /hpf (0-5)
[2023-12-30 21:39] LABS: Red Blood Cells-Urine 5-10 SEEN /hpf (0-5); White Blood Cells 0-5 SEEN /hpf (0-5)
[2023-12-30 21:42] LABS: Bacteria 1+ /hpf (None Seen)
[2023-12-30 21:44] LABS: Anion Gap 6 (5-15); BUN 10 mg/dL (7-18); BUN/Creat Ratio 11.4 RATIO (10-20); Chloride 110 mmol/L (98-107); Creatinine, Serum 0.88 mg/dL (0.70-1.30); EST Glomerular Filtration Rate 102 mL/min (>60); Est Glom Filt Rate - Afr Amer 124 mL/min (>60); Estimated Creatinine Clearance 184.15 ml/min; Glucose 92 mg/dL (74-106); Potassium 3.9 mmol/L (3.5-5.1); Sodium Level 141 mmol/L (136-145); Troponin-I HS 5 pg/mL (3.0-78.0)
[2023-12-30 23:19] VITALS: BP 125/75; PULSE 94; RESP 18; TEMP 36.6; O2SAT 97
== END 2023-12-30 23:23 | disposition home or self-care (01) ==
PROVIDERS: Emergency Provider Emergency Medicine; Visit Provider Emergency Medicine
DX: R60.0 Localized edema (principal); F17.210 Nicotine dependence, cigarettes, uncomplicated
CPT/HCPCS: 71046; 80048; 81001; 83880; 84484; 85025; 93005; 99283; A4216

== ENCOUNTER → 2025-04-11 | Outpatient (CLI) | payer MEDICAID, SELFPAY ==
--- NOTE | 2025-04-11 18:03 | CT_ITS ---
PROCEDURE: ABDOMEN/PELVIS W IV CONT ONLY 04/11/2025 REASON FOR EXAM: HERNIA TECHNIQUE: Procedure Code: [id number] Modality: CT Procedure: ABDOMEN/PELVIS W IV CONT ONLY Coronal and Sagittal reconstruction series were provided. CONTRAST: VOLUME: mL One or more dose reduction techniques were used (e.g., Automated exposure control, adjustment of the mA and/or kV according to patient size, use of iterative reconstruction technique. COMPARISON: 06/22/2021. FINDINGS: The visualized lung bases are clear. A 2 mm nonobstructing stone is noted within the right renal pelvis (series 2, image 61). The liver is enlarged, measuring 30 cm in its greatest dimension. No focal lesion. No evidence of a bowel obstruction. Minimal wall thickening of the left side of the colon could be due to decompression, however minimal colitis can not be entirely excluded. The appendix is visualized and unremarkable. Moderate-sized fat-containing umbilical hernia. No intraperitoneal free air or free fluid. No abdominal nor pelvic lymphadenopathy. No acute osseous abnormality. No acute fracture. Degenerative disc disease at L5-S1. CT/Abdomen/Pelvis W IV Cont ONLY IMPRESSION: Nonobstructing 2 mm right nephrolithiasis. Hepatomegaly, similar to the previous study. Minimal wall thickening of the left side of the colon could be due to decompres marina, however minimal colitis can not be entirely excluded. Moderate-sized fat-containing umbilical hernia, increased in size since the pre vious study. Reading Location: [id number]
== END | disposition home or self-care (01) ==
LOC: CT 18:03
PROVIDERS: Referring Provider Surgery; Visit Provider Surgery
DX: K42.9 Umbilical hernia without obstruction or gangrene (principal)
CPT/HCPCS: 74177; Q9967

== ENCOUNTER → 2025-04-14 | Outpatient (CLI) | payer MEDICAID, SELFPAY ==
[2025-04-14 17:05] LABS: Hematocrit 49.2 % (40-54); Hemoglobin 16.4 g/dL (13.0-16.5); Immature Granulocytes Count 0.030 X10^3/uL (0.0-0.0); Mean Corp Hgb Conc 33.3 g/dL (32-36); Mean Corpuscular Volume 88.8 fL (80-94); Mean Platelet Vol. 11.7 fl (6.2-12.0); NRBC Flagged by Analyzer 0 % (0-5); Platelet Count 245 K/mm3 (150-450); RBC Distribution Width CV 13.8 % (11.6-14.6); RBC Distribution Width SD 44.8 fl (35.1-43.9); Red Blood Count 5.54 M/mm3 (4.6-6.2); White Blood Count 9.5 K/mm3 (4.4-11.0)
[2025-04-14 17:25] LABS: Barbiturate Urine NEGATIVE (< 200 ng/mL); Benzodiazepine Urine NEGATIVE (< 200 ng/mL); PCP Urine NEGATIVE (< 25 ng/mL); THC Urine PRESUMPTIVE POSITIVE (< 50 ng/mL)
[2025-04-14 17:28] LABS: AST(SGOT) 21 U/L (<=37); Alanine Aminotransfer ALT/SGPT 25 U/L (<=46); Albumin, Serum 4.6 g/dL (3.5-5.0); Alkaline Phosphatase 104 U/L (40-129); Anion Gap 16 (5-15); BUN 21 mg/dL (4-19); BUN/Creat Ratio 16.8 RATIO (10-20); Calcium,Total 9.5 mg/dL (7.6-11.0); Carbon Dioxide 20.3 mmol/L (21.0-32.0); Chloride 103 mmol/L (98-108); Globulin 3.0 g/dL (2.2-4.2); Glucose 103 mg/dL (70-99); Potassium 4.1 mmol/L (3.3-5.1)
== END | disposition home or self-care (01) ==
DX: F90.9 Attention-deficit hyperactivity disorder, unspecified type (principal)
CPT/HCPCS: 36415; 80053; 80307; 84443; 85025